=== PATIENT | male | born 1930 ===

== ENCOUNTER 2016-12-02 17:15 | Inpatient (IN) | payer MEDICARE, BC ==
[2016-12-02 18:08] LABS: BASO % 0.3 % (0-2); EOS % 0.5 % (0-7); EOSINOPHIL ABSOLUTE COUNT 0.1 tho/cmm (0.0-0.7); HCT-HEMATOCRIT 39.3 % (36.0-53.5); HGB-HEMOGLOBIN 13.4 gm/dl (13.5-17.0); LYMPH % 3.9 % (20-45); LYMPH ABSOLUTE COUNT 0.5 tho/cmm (0.8-4.5); MCH (MEAN CORPUSCULAR HGB) 32.8 pg (28.0-32.0); MCHC MEAN CORPUSCULAR HGB CONC 34.1 % (32.0-36.0); MCV (MEAN CELL VOLUME) 96.3 fl (82.0-96.0); MEAN PLATELET VOLUME 10.5 cmc (9.4-12.4); MONO % 4.3 % (0-12); MONOCYTE ABSOLUTE COUNT 0.5 tho/cmm (0.0-1.2); NEUTROPHIL ABSOLUTE COUNT 11.2 tho/cmm (1.6-8.0); NEUTROPHIL-AUTOMATED 11.2 tho/cmm (1.6-8.0); PLATELET COUNT 156 tho/cmm (150-450); RED BLOOD COUNT 4.08 mil/cmm (4.40-5.70); RED CELL DISTRIBUTION WIDTH 13.5 % (12.4-16.4); WHITE BLOOD COUNT 12.3 tho/cmm (4.0-10.0)
[2016-12-02 18:09] LABS: INR 1.1 INR (0.9-1.1); PROTHROMBIN TIME 12.3 SECONDS (9.0-13.6)
[2016-12-02 18:18] LABS: ALB/GLOB RATIO 0.9 (0.8-2.0); ALBUMIN 3.3 g/dl (3.5-5.0); ALKALINE PHOSPHATASE 47 U/L (33-138); ALT/SGPT 42 U/L (12-78); ANION GAP 16 mmol/L (0-20); AST/SGOT 26 U/L (10-40); BILIRUBIN,TOTAL 0.6 mg/dl (0.0-1.5); BLOOD UREA NITROGEN 48 mg/dl (6-24); CALCIUM 8.9 mg/dl (8.5-10.5); CARBON DIOXIDE-VENOUS 18 mmol/L (22-32); CHLORIDE 117 mmol/l (96-110); CREATININE 3.33 mg/dl (0.60-1.30); GLUCOSE 143 mg/dL (70-110); POTASSIUM 5.1 mmol/L (3.7-5.1); SODIUM 146 mmol/L (135-145); eGFR VALUE FOR BLACK 18 mL/Min
[2016-12-02] MEDS ORDERED: ARICEPT10 M2 PO (20:53)
[2016-12-02] MEDS ORDERED: TERAZOSIN HCL5 MG PO (20:54)
[2016-12-02] MEDS ORDERED: ASPIRIN81 M1 PO (20:54)
[2016-12-02] MEDS ORDERED: ZOCOR80 M1 PO (20:55)
[2016-12-02] MEDS ORDERED: FISH OIL 1,001000 M2 PO (20:55)
[2016-12-02 22:27] LABS: URINE BILIRUBIN NEGATIVE (NEG); URINE BLOOD SMALL (NEG); URINE GLUCOSE (UA) NEGATIVE (NEG); URINE KETONE NEGATIVE (NEG); URINE LEUKOCYTE ESTERASE NEGATIVE (NEG); URINE NITRITE NEGATIVE (NEG); URINE PROTEIN MODERATE (NEG); URINE SPECIFIC GRAVITY 1.025 (1.003-1.030)
[2016-12-02 22:28] LABS: URINE APPEARANCE HAZY; URINE COLOR YELLOW
[2016-12-02 22:32] LABS: URINE EPITHELIAL CELLS 0 /[HPF] (0-10); URINE RBC 0 /[HPF] (0-5); URINE WBC 0-3 /[HPF] (0-5)
[2016-12-02 23:07] LABS: PROCALCITONIN 0.39 ng/ml (0.05-0.09)
[2016-12-03 00:05] LABS: URINE PRT/CR RATIO 0.31 Ratio (0.0-0.20); URINE TOTAL PROTEIN-RANDOM 54.6 mg/dl (<11.8)
[2016-12-03 04:45] LABS: BASO % 0.4 % (0-2); EOS % 1.1 % (0-7); EOSINOPHIL ABSOLUTE COUNT 0.1 tho/cmm (0.0-0.7); HCT-HEMATOCRIT 35.5 % (36.0-53.5); HGB-HEMOGLOBIN 11.9 gm/dl (13.5-17.0); IMMATURE GRANULOCYTES ABSOLUTE 0.02 tho/cmm (0-0.03); IMMATURE GRANULOCYTES PERCENT 0.3 % (0-0.3); LYMPH % 24.2 % (20-45); LYMPH ABSOLUTE COUNT 1.8 tho/cmm (0.8-4.5); MCH (MEAN CORPUSCULAR HGB) 32.4 pg (28.0-32.0); MCHC MEAN CORPUSCULAR HGB CONC 33.5 % (32.0-36.0); MCV (MEAN CELL VOLUME) 96.7 fl (82.0-96.0); MEAN PLATELET VOLUME 10.5 cmc (9.4-12.4); MONO % 10.6 % (0-12); MONOCYTE ABSOLUTE COUNT 0.8 tho/cmm (0.0-1.2); NEUTROPHIL ABSOLUTE COUNT 4.8 tho/cmm (1.6-8.0); NEUTROPHIL-AUTOMATED 4.8 tho/cmm (1.6-8.0); NEUTROPHILS % 63.4 % (40-80); PLATELET COUNT 128 tho/cmm (150-450); RED BLOOD COUNT 3.67 mil/cmm (4.40-5.70); RED CELL DISTRIBUTION WIDTH 13.7 % (12.4-16.4); WHITE BLOOD COUNT 7.6 tho/cmm (4.0-10.0)
[2016-12-03 05:03] LABS: ANION GAP 15 mmol/L (0-20); BLOOD UREA NITROGEN 46 mg/dl (6-24); CALCIUM 8.2 mg/dl (8.5-10.5); CARBON DIOXIDE-VENOUS 21 mmol/L (22-32); CHLORIDE 115 mmol/l (96-110); CREATININE 2.78 mg/dl (0.60-1.30); GLUCOSE 110 mg/dL (70-110); POTASSIUM 4.8 mmol/L (3.7-5.1); SODIUM 146 mmol/L (135-145); eGFR VALUE FOR BLACK 23 mL/Min
[2016-12-03 05:23] LABS: TSH-THYROID STIMULATING HORM. 0.77 uIU/ml (0.40-3.80)
[2016-12-03] MEDS ORDERED: LISINOPRIL40 M1 PO (15:11)
[2016-12-04 03:48] LABS: HGB-HEMOGLOBIN 11.4 gm/dl (13.5-17.0); MCH (MEAN CORPUSCULAR HGB) 32.3 pg (28.0-32.0); MCHC MEAN CORPUSCULAR HGB CONC 33.5 % (32.0-36.0); MCV (MEAN CELL VOLUME) 96.3 fl (82.0-96.0); MEAN PLATELET VOLUME 10.2 cmc (9.4-12.4); PLATELET COUNT 115 tho/cmm (150-450); RED BLOOD COUNT 3.53 mil/cmm (4.40-5.70); RED CELL DISTRIBUTION WIDTH 13.7 % (12.4-16.4)
[2016-12-04 04:20] LABS: ANION GAP 13 mmol/L (0-20); BLOOD UREA NITROGEN 35 mg/dl (6-24); CALCIUM 7.7 mg/dl (8.5-10.5); CARBON DIOXIDE-VENOUS 21 mmol/L (22-32); CHLORIDE 114 mmol/l (96-110); GLUCOSE 104 mg/dL (70-110); SODIUM 143 mmol/L (135-145); eGFR VALUE FOR BLACK 33 mL/Min
[2016-12-04 04:30] LABS: CREATININE 2.05 mg/dl (0.60-1.30)
[2016-12-04 04:31] LABS: POTASSIUM 4.6 mmol/L (3.7-5.1)
[2016-12-04 08:08] LABS: BAND % 4 % (0-20); BAND ABSOLUTE COUNT 0.3 tho/cmm (0-2.0); EOSINOPHIL % 3 % (0-7)
[2016-12-05 05:34] LABS: ANION GAP 12 mmol/L (0-20); BLOOD UREA NITROGEN 26 mg/dl (6-24); CALCIUM 8.4 mg/dl (8.5-10.5); CARBON DIOXIDE-VENOUS 21 mmol/L (22-32); CHLORIDE 111 mmol/l (96-110); CREATININE 1.79 mg/dl (0.60-1.30); GLUCOSE 107 mg/dL (70-110); SODIUM 140 mmol/L (135-145); eGFR VALUE FOR BLACK 39 mL/Min
[2016-12-05 05:39] LABS: POTASSIUM 4.4 mmol/L (3.7-5.1)
[2016-12-05 05:50] LABS: BASO % 0.3 % (0-2); EOS % 3.3 % (0-7); EOSINOPHIL ABSOLUTE COUNT 0.3 tho/cmm (0.0-0.7); HCT-HEMATOCRIT 35.5 % (36.0-53.5); HGB-HEMOGLOBIN 12.2 gm/dl (13.5-17.0); IMMATURE GRANULOCYTES ABSOLUTE 0.02 tho/cmm (0-0.03); IMMATURE GRANULOCYTES PERCENT 0.3 % (0-0.3); LYMPH % 23.2 % (20-45); LYMPH ABSOLUTE COUNT 1.7 tho/cmm (0.8-4.5); MCH (MEAN CORPUSCULAR HGB) 32.6 pg (28.0-32.0); MCHC MEAN CORPUSCULAR HGB CONC 34.4 % (32.0-36.0); MCV (MEAN CELL VOLUME) 94.9 fl (82.0-96.0); MEAN PLATELET VOLUME 10.7 cmc (9.4-12.4); MONO % 6.5 % (0-12); MONOCYTE ABSOLUTE COUNT 0.5 tho/cmm (0.0-1.2); NEUTROPHILS % 66.4 % (40-80); PLATELET COUNT 127 tho/cmm (150-450); RED BLOOD COUNT 3.74 mil/cmm (4.40-5.70); RED CELL DISTRIBUTION WIDTH 13.5 % (12.4-16.4); WHITE BLOOD COUNT 7.5 tho/cmm (4.0-10.0)
[2016-12-05] MEDS ORDERED: TOPROL XL25 M1 PO (10:37)
== END 2016-12-05 15:30 | disposition home health service (06) | DRG 923 ==
LOC: EDMED 17:15 → EMR2 20:15 → PCUB 21:37
PROVIDERS: Emergency Medicine; Internal Medicine; Physician Assistant Medical; ADMIT Hospitalist
PROC: 3E0234Z Introduction of Serum, Toxoid and Vaccine into Muscle, Percutaneous Approach (ICD-10-PCS; principal; 2016-12-03)
DX: T67.1XXA Heat syncope, initial encounter (principal); R57.9 Shock, unspecified; N17.9 Acute kidney failure, unspecified; I24.8 Other forms of acute ischemic heart disease; F03.90 Unspecified dementia, unspecified severity, without behavioral disturbance, psychotic disturbance, mood disturbance, and anxiety; J44.9 Chronic obstructive pulmonary disease, unspecified; F17.210 Nicotine dependence, cigarettes, uncomplicated; E78.5 Hyperlipidemia, unspecified; Z79.82 Long term (current) use of aspirin; E86.0 Dehydration; R41.0 Disorientation, unspecified; N18.9 Chronic kidney disease, unspecified; I95.1 Orthostatic hypotension; R50.9 Fever, unspecified; Z23 Encounter for immunization
CPT/HCPCS: C8929; G0009; J1650; J2543; J3370; J7030; J7050